=== PATIENT | male | born 1965 | race Caucasian/White ===

== ENCOUNTER 2021-09-03 10:18 | Observation (INO) | payer BC ==
[2021-09-03 10:35] VITALS: BMI 32.3
[2021-09-03 12:19] LABS: BASO % 1.1 % (0-2.0); EOS % 1.1 % (0-4.5); HEMATOCRIT 46.1 % (35.4-49); HEMOGLOBIN 16.3 GM/dL (11.7-16.9); LYMPH % 16.1 % (8-40); MCH 32.1 pg (25.7-33.7); MCHC 35.4 g/dl (32.0-35.9); MEAN CELL VOLUME 90.7 fl (80-96); MEAN PLT VOLUME 7.8 fl (7.5-11.1); MONO % 6.3 % (3.8-10.2); NEUT % 75.4 % (42.8-82.8); PLATELET COUNT 198 10^3/uL (134-434); RBC 5.08 M/mm3 (4.00-5.60); RDW 13.6 % (11.9-15.9); WHITE BLOOD COUNT 5.7 K/mm3 (4.0-10.0)
[2021-09-03 12:45] LABS: CHLORIDE 111 mmol/L (98-107); SODIUM 142 mmol/L (136-145)
[2021-09-03 12:47] LABS: CALCIUM 8.9 mg/dL (8.5-10.1)
[2021-09-03 12:48] LABS: ANION GAP 5 MMOL/L (8-16); CO2 26 mmol/L (21-32); GLUCOSE,RANDOM 102 mg/dL (74-106)
[2021-09-03 12:51] LABS: SGPT/ALT 35 U/L (13-61)
[2021-09-03 12:52] LABS: BILIRUBIN,TOTAL 0.5 mg/dL (0.2-1); SGOT/AST 16 U/L (15-37); TOT PROT 6.8 g/dl (6.4-8.2)
[2021-09-03 12:53] LABS: ALK PHOS 82 U/L (45-117)
[2021-09-03] MEDS ORDERED: ASPIRIN 325 MG TABLET PO ONE (15:32)
[2021-09-03] MEDS ORDERED: ASPIRIN 81 MG CHEWABLE TABLETS ONE (15:58)
[2021-09-03] MEDS ORDERED: ALPRAZolam 0.25 MG TABLET PO PRN (16:54)
[2021-09-03] MEDS ORDERED: ACETAMINOPHEN 325 MG TABLET (FP) PO PRN (16:59)
[2021-09-03] MEDS ORDERED: ATORVASTATIN CA 80 MG TABLET (FP) PO SCH ×2 (17:00→17:09)
[2021-09-03] MEDS ORDERED: ASPIRIN 81 MG CHEWABLE TABLETS PO SCH (17:00)
[2021-09-03] MEDS ORDERED: PT OWN MED DRAWER 7, Y5N ONE (17:57)
[2021-09-03] MEDS: PRASUGREL HCL 10 MG TAB PO SCH (19:08)
[2021-09-03] MEDS ORDERED: LIDOCAINE 5% TOPICAL PATCH TP ONE (21:00)
[2021-09-03] MEDS: NICOTINE 14 MG/24 HOURS TOPICAL PATCH TD SCH (21:31)
[2021-09-03] MEDS ORDERED: ATORVASTATIN CA 80 MG TABLET (FP) ONE (21:35)
[2021-09-04 07:40] LABS: CHOLESTEROL 143 mg/dL (50-200); LDL CHOLESTEROL (ONLY SJRH) 91 mg/dL (5-100)
[2021-09-04 07:41] LABS: TRIGLYCERIDES 135 mg/dL (0-150)
[2021-09-04 07:44] LABS: HDL CHOLESTEROL 33 mg/dL (40-60)
[2021-09-04] MEDS ORDERED: metoPROLOL SUCCINATE 25 MG TAB.SR.24H (FP) PO SCH (10:00)
[2021-09-04] MEDS ORDERED: LISINOPRIL 20 MG TABLET PO SCH (10:00)
[2021-09-04] MEDS ORDERED: LIDOCAINE PATCH REMOVAL MC SCH (10:00)
[2021-09-04] MEDS ORDERED: ASPIRIN 81 MG CHEWABLE TABLETS PO SCH (10:00)
[2021-09-04] MEDS ORDERED: ASPIRIN 81 MG CHEWABLE TABLETS ONE (10:44)
[2021-09-04] MEDS ORDERED: LISINOPRIL 20 MG TABLET ONE (10:45)
[2021-09-04] MEDS ORDERED: metoPROLOL SUCCINATE 25 MG TAB.SR.24H (FP) ONE (10:45)
[2021-09-04] MEDS ORDERED: LIDOCAINE 5% TOPICAL PATCH ONE (10:45)
[2021-09-04] MEDS: PRASUGREL HCL 10 MG TAB PO SCH (11:01)
[2021-09-04] MEDS: NICOTINE 14 MG/24 HOURS TOPICAL PATCH TD SCH (11:02)
[2021-09-04] MEDS ORDERED: ALPRAZolam 1 MG TABLET ONE (13:10)
[2021-09-04 16:06] VITALS: BP 130/68; PULSE 67; TEMP 98.3
== END 2021-09-04 18:02 | disposition home or self-care (01) ==
LOC: JER 10:18 → JERBED 13:41
PROVIDERS: ADMIT Internal Medicine; ATTEND Nurse Practitioner Acute Care
DX: F41.0 Panic disorder [episodic paroxysmal anxiety] (principal); I10 Essential (primary) hypertension; E78.5 Hyperlipidemia, unspecified; I25.2 Old myocardial infarction; M79.10 Myalgia, unspecified site; R73.9 Hyperglycemia, unspecified; R06.02 Shortness of breath; R10.32 Left lower quadrant pain; Z86.16 Personal history of COVID-19; Z95.5 Presence of coronary angioplasty implant and graft; E66.9 Obesity, unspecified; Z79.82 Long term (current) use of aspirin; Z87.820 Personal history of traumatic brain injury; F43.10 Post-traumatic stress disorder, unspecified; Z68.32 Body mass index [BMI] 32.0-32.9, adult; F17.210 Nicotine dependence, cigarettes, uncomplicated
CPT/HCPCS: 36415; 71045-TC-FY; 76705-TC; 80053; 80061; 82550; 82962; 84443; 84484; 85025; 93005; 93010; 99285-25; C9803; G0378; U0003; U0005